=== PATIENT | female | born 1965 | race Two or more races ===

== ENCOUNTER 2025-08-24 12:51 | Emergency (ER) | payer BC ==
[~2025-08-24] VITALS: Ht 177.8 cm; Wt 92.1 kg
[2025-08-24] MEDS ORDERED: CETIRIZINE HCL 5 MG/5 ML ML PO ONE (15:00)
[2025-08-24] MEDS ORDERED: CEFTRIAXONE SODIUM 1,000 MG VIAL IM ONE (15:00)
[2025-08-24] MEDS ORDERED: AMOX-CLAV 875-1 EAC1 PO (15:14)
[2025-08-24] MEDS ORDERED: ZYRTEC10 MG PO (15:14)
== END 2025-08-24 23:03 | disposition home or self-care (01) ==
LOC: ER 12:52
DX: J34.89 Other specified disorders of nose and nasal sinuses (principal); J32.0 Chronic maxillary sinusitis; R09.81 Nasal congestion